=== PATIENT | female | born 1955 | race Caucasian/White ===

== ENCOUNTER 2016-07-02 17:13 | Emergency (ER) | payer OTHER ==
[~2016-07-02] VITALS: Wt 69.0 kg
[~2016-07-02 17:13] MED LIST: SITA1TAB PO
[2016-07-02] MEDS ORDERED: morphine 4 MG/ML VIAL IV STA (17:40)
[2016-07-02] MEDS ORDERED: ONDANSETRON 4 MG INJ IV STA (17:40)
[2016-07-02] MEDS ORDERED: SOD CHLORIDE 0.9% 1,000 ML IV STA (17:40)
[2016-07-02 17:59] LABS: ALBUMIN 4.5 g/dl (3.3-4.9); POTASSIUM 3.8 mmol/L (3.5-5.1)
[2016-07-02 18:00] LABS: ADD UMIC YES; HEMATOCRIT 41.8 % (37.0-47.0); HEMOGLOBIN 14.4 g/dl (12.0-16.0); MEAN CORPUSCULAR HEMOGLOBIN 30.7 pg (29.0-33.0); MEAN CORPUSCULAR HGB CONC 34.5 g/dl (32.0-37.0); MEAN PLATELET VOLUME 14.3 fl (7.4-10.4); PLATELET COUNT 90 10^3/UL (140-440); RED BLOOD COUNT 4.69 10^6/ul (4.20-5.40); RED CELL DISTRIBUTION WIDTH 13.1 % (11.5-14.5); UNCORRECTED WBC 9.6 10^3/ul (4.8-10.8); URINE BILIRUBIN (Dip) NEGATIVE (NEGATIVE); URINE BLOOD (Dip) NEGATIVE (NEGATIVE); URINE COLOR LT. YELLOW (YELLOW); URINE GLUCOSE (Dip) NEGATIVE (NEGATIVE); URINE KETONES (Dip) NEGATIVE (NEGATIVE); URINE LEUKOCYTE ESTERASE (Dip) TRACE (NEGATIVE); URINE NITRITE (Dip) NEGATIVE (NEGATIVE); URINE TOTAL PROTEIN (Dip) NEGATIVE (NEGATIVE); URINE UROBILINOGEN (Dip) 0.2 E.U./dL (0.1-1.0); WHITE BLOOD COUNT 9.6 10^3/ul (4.8-10.8)
[2016-07-02 18:01] LABS: BILIRUBIN,INDIRECT 0.3 mg/dl (0-1.1); BILIRUBIN,TOTAL 0.3 mg/dl (0.2-1.3); CREATININE 0.61 mg/dl (0.44-1.00)
[2016-07-02 18:02] LABS: ALBUMIN/GLOBULIN RATIO 1.12; CALCIUM 9.5 mg/dl (8.4-10.2); TOTAL PROTEIN 8.5 g/dl (6.1-8.1)
[2016-07-02 18:04] LABS: CONDITION 1; LH ANALYZER COMMENTS 1; SUSPECT 1
[2016-07-02 18:10] LABS: SQUAMOUS EPITHELIAL CELL,UR FEW
[2016-07-02 18:11] LABS: URINE RBCS 0-2 /HPF (0)
--- NOTE | 2016-07-02 18:26 | RADRPT ---
PROCEDURE: CT abdomen and pelvis with. contrast. CLINICAL INDICATION: Abdominal Pain TECHNIQUE: Noncontrast CT examination of the abdomen and pelvis, with axial, sagittal and coronal reformatted images. CTDI: 6.49 mGy and DLP: 349.25 mGy-cm. COMPARISON: None. FINDINGS: CT abdomen: The lung bases are clear. The heart size is normal, without pericardial thickening or effusion. 14 mm low attenuation lesion in the left hepatic lobe statistically represents a cyst. The liver is otherwise unremarkable. The spleen is normal in size and homogeneous in density. The stomach is pa rtially collapsed, but is grossly unremarkable. The pancreas as visualized is normal. The gallblad jack and biliary tree are unremarkable and there is no evidence for biliary dilatation. The adrenal glands are symmetric and normal. The kidneys are symmetrically unremarkable as well. No renal calcu josé miguel or obstructive uropathy or mass lesion is seen. The aorta is of normal caliber. There is no retroperitoneal lymphadenopathy. The evens hepatis reg ion is clear. The bowel and mesentery, as visualized, are equally unremarkable. CT pelvis: Solid stool in the distal ileum compatible with small bowel motility disorder. The pelvic organs ar e normal. The pelvic sidewalls and inguinal regions are clear. The sigmoid colon as a few divertic brenna; and rectum is unremarkable. No mass, lymphadenopathy, or free fluid is seen. No acute inflamm ation is seen. The appendix is unremarkable. The surrounding osseous structures are remarkable for mild degenerative spondylosis of the spine. N o osteolytic or osteoblastic lesion is detected. IMPRESSION: 1. Small bowel motility disorder. 2. Otherwise, unremarkable CT scan of the abdomen and pelvis. RPTAT: [facility] Physician Jennie Date Time Electronically viewed and signed by Physician Jennie on 07/02/2016 18:26 RS/
[2016-07-02 18:38] LABS: LYMPHOCYTES # 1.6 10^3/ul (0.8-2.9); MONOCYTE # 0.4 10^3/ul (0.3-0.9); NEUTROPHIL # 7.4 10^3/ul (1.6-7.5); PLATELET ESTIMATE PLT APPEAR DECREASED
[2016-07-02] MEDS ORDERED: DICLOFENAC SODIUM 37.5 MG/ML VIAL IV STA (19:25)
[2016-07-02 19:56] VITALS: BP 147/74; PULSE 69; RESP 16; TEMP 98
[2016-07-02] MEDS ORDERED: ONDA4TAB11 PO (20:01)
[2016-07-02] MEDS ORDERED: MAGN296S40 PO (20:01)
[2016-07-02] MEDS ORDERED: NAPR-688 PO (20:01)
[2016-07-02] MEDS ORDERED: POLY17PO6 PO (20:01)
--- NOTE | 2016-07-02 20:31 | ERD ---
ER Documentation Chief Complaint Date/Time DATE: 07/02/16 TIME: 20:13 Chief Complaint ABD PAIN X 1 DAY HPI This 61-year-old female presents for left lower quadrant abdominal pain for 1 day. She denies fever and chills. Denies any nausea and vomiting. Denies constipation and diarrhea. States that aside from the pain in her left lower quadrant she has no other symptoms. She is diabetic and her sugars are controlled. ROS All systems reviewed and are negative except as per history of present illness. Medications Home Meds Active Scripts Magnesium Citrate* (Magnesium Citrate*) 296 Ml Solution, 296 ML PO ONCE, #1 BOTTLE Prov:RANGEL HSU DO 07/02/16 Polyethylene Glycol* (Miralax*) 17 Gm Powd.pack, 17 GM PO DAILY, #7 Prov:RANGEL HSU DO 07/02/16 Ondansetron (Zofran Odt) 4 Mg Tab.rapdis, 4 MG PO Q6 for NAUSEA, #10 Prov:RANGEL HSU DO 07/02/16 Naproxen* (Naproxen*) 500 Mg Tablet, 500 MG PO BID Y for PAIN, #20 TAB Prov:RANGEL HSU DO 07/02/16 Reported Medications Sitagliptin Phos/Metformin HCl (Janumet 50-500 mg Tablet) 1 Each Tablet, 1 EACH PO DAILY, TAB 05/10/16 Allergies Allergies: Coded Allergies: No Known Drug Allergies (Verified Allergy, Mild, 07/02/16) PMhx/Soc History of Surgery: No Anesthesia Reaction: No Hx Neurological Disorder: No Hx Respiratory Disorders: No Hx Cardiac Disorders: No Hx Psychiatric Problems: No Hx Miscellaneous Medical Probl: No Hx Alcohol Use: No Hx Substance Use: No Hx Tobacco Use: No Smoking Status: Never smoker Physical Exam Vitals Vital Signs Date Time Temp Pulse Resp B/P Pulse Ox O2 Delivery O2 Flow Rate FiO2 07/02/16 19:56 98.0 69 16 147/74 99 Room Air 07/02/16 17:15 98.0 70 16 171/68 99 Physical Exam Const: [] No distress Head: Atraumatic Eyes: Normal Conjunctiva ENT: Normal External Ears, Nose and Mouth. Neck: Full range of motion..~ No meningismus. Resp: Clear to auscultation bilaterally Cardio: Regular rate and rhythm, no murmurs Abd: Soft, mild left lower quadrant and midabdominal tenderness without guarding or rebound, non distended. Normal bowel sounds Skin: No petechiae or rashes Back: No midline or flank tenderness Ext: No cyanosis, or edema Neur: Awake and alert and oriented 3, no focal deficits Psych: Normal Mood and Affect Result Diagram: 07/02/16 1730 07/02/16 1730 Results 24 hrs Laboratory Tests Test 07/02/16 17:30 Alanine Aminotransferase (ALT/SGPT) 29IU/L Albumin 4.5g/dl Albumin/Globulin Ratio 1.12 Alkaline Phosphatase 114IU/L Anion Gap 18 Aspartate Amino Transf (AST/SGOT) 27IU/L Band Neutrophils % 2.0% Blood Morphology Comment Blood Urea Nitrogen 15mg/dl Calcium Level 9.5mg/dl Carbon Dioxide Level 26mmol/L Chloride Level 105mmol/L Creatinine 0.61mg/dl Direct Bilirubin 0.00mg/dl Globulin 4.00g/dl Glucose Level 101mg/dl Hematocrit 41.8% Hemoglobin 14.4g/dl Indirect Bilirubin 0.3mg/dl Large Platelets FEW Lipase 102U/L Lymphocytes # 1.610^3/ul Lymphocytes % 17.0% Mean Corpuscular Hemoglobin 30.7pg Mean Corpuscular Hemoglobin Concent 34.5g/dl Mean Corpuscular Volume 89.0fl Mean Platelet Volume 14.3fl Monocytes # 0.410^3/ul Monocytes % 4.0% Neutrophils # 7.410^3/ul Neutrophils % 77.0% Platelet Count 9010^3/UL Platelet Estimate PLT APPEAR DECREASED Potassium Level 3.8mmol/L Red Blood Count 4.6910^6/ul Red Cell Distribution Width 13.1% Sodium Level 145mmol/L Total Bilirubin 0.3mg/dl Total Protein 8.5g/dl Urine Bilirubin NEGATIVE Urine Clarity CLEAR Urine Color LT. YELLOW Urine Glucose NEGATIVE% Urine Hemoglobin NEGATIVE Urine Ketones NEGATIVE Urine Leukocyte Esterase TRACE Urine Microscopic RBC 0-2/HPF Urine Microscopic WBC 2-5/HPF Urine Nitrite NEGATIVE Urine Specific [place] <=1.005 Urine Squamous Epithelial Cells FEW Urine Total Protein NEGATIVE Urine Urobilinogen 0.2 E.U./dL Urine pH 5.5 White Blood Count 9.610^3/ul Current Medications Medications (Trade) Dose Ordered Sig/Ana Route PRN Reason Start Time Stop Time Status Last Admin Dose Admin Sodium Chloride (NS) 1,000 ml @ 1,000 mls/hr Q1H STAT IV 07/02/16 17:40 07/02/16 18:39 DC 07/02/16 17:47 Morphine Sulfate (morphine) 4 mg ONCE STAT IV 07/02/16 17:40 07/02/16 17:41 DC 07/02/16 17:48 Ondansetron HCl (Zofran Inj) 4 mg ONCE STAT IV 07/02/16 17:40 07/02/16 17:41 DC 07/02/16 17:47 Diclofenac Sodium (Dyloject) 37.5 mg ONCE STAT IV 07/02/16 19:25 07/02/16 19:26 DC 07/02/16 19:36 Procedures/MDM 61-year-old female with abdominal pain secondary to motility disorder causing pain. Patient was hydrated with normal saline and given morphine and Zofran initially. She stated this took away all of her pain. After the CT read returned I offered admission but she stated that she definitely would rather try laxatives prior to being admitted. She has no nausea but amended discharge her with some Zofran in case she develops it that she can hydrate herself well, I am also discharging her with MiraLAX, magnesium citrate, naproxen. Told her to return emergency room she has at the return of pain or any other concerning symptoms. CT abdomen pelvis interpretation: Motility disorder involving stool in the terminal ileum Departure Diagnosis: Primary Impression: Abdominal pain Additional Impression: Motility disorder of intestine Condition: Stable Patient Instructions: Abdominal Pain, Gastroparesis Additional Instructions: Call your primary care doctor TOMORROW for an appointment during the next 2-3 days.See the doctor sooner or return here if your condition worsens before your appointment time. RANGEL HSU DO Jul 02, 2016 20:24
== END 2016-07-02 20:14 | disposition home or self-care (01) ==
LOC: E/R 17:13
DX: R10.32 Left lower quadrant pain (principal); K30 Functional dyspepsia; E11.9 Type 2 diabetes mellitus without complications; Z79.84 Long term (current) use of oral hypoglycemic drugs
CPT/HCPCS: 36415; 74176; 80053; 81001; 83690; 85025; 96374; 96375; J2270; J2405; J7030; Z7502; Z7610; 81003

== ENCOUNTER 2018-10-04 21:55 | Emergency (ER) | payer OTHER ==
[~2018-10-04] VITALS: Ht 154.9 cm; Wt 58.2 kg
[~2018-10-04 21:55] MED LIST changes: +MAGN296S40 PO; +NAPR-688 PO; +ONDA4TAB11 PO; +POLY17PO6 PO
[2018-10-04 21:58] VITALS: BP 168/79; PULSE 83; RESP 16; Ht 154.9 cm; Wt 58.2 kg
--- NOTE | 2018-10-04 23:53 | ERD ---
ER Documentation Chief Complaint Chief Complaint Rash on L leg since tonight HPI 63-year-old female, previously healthy, presents to the emergency department, complaining of acute onset of erythematous, pruritic rash on the left lower extremity that started tonight after eating salmon and drinking a beer. The patient denies history of allergies. She denies lip or tongue swelling. No shortness of breath. ROS All systems reviewed and are negative except as per history of present illness. Medications Home Meds Active Scripts Diphenhydramine Hcl* (Benadryl*) 25 Mg Cap, 25 MG PO Q6 PRN for ITCHING/RASH, #12 TAB Prov:CANDICE GAYTAN MD 10/05/18 Prednisone* (Prednisone*) 20 Mg Tab, 40 MG PO DAILY for 4 Days, TAB Prov:CANDICE GAYTAN MD 10/05/18 Magnesium Citrate* (Magnesium Citrate*) 296 Ml Solution, 296 ML PO ONCE, #1 BOTTLE Prov:RANGEL HSU DO 07/02/16 Polyethylene Glycol* (Miralax*) 17 Gm Powd.pack, 17 GM PO DAILY, #7 Prov:RANGEL HSU DO 07/02/16 Ondansetron (Zofran Odt) 4 Mg Tab.rapdis, 4 MG PO Q6 for NAUSEA, #10 Prov:RANGEL HSU DO 07/02/16 Naproxen* (Naproxen*) 500 Mg Tablet, 500 MG PO BID PRN for PAIN, #20 TAB Prov:RANGEL HSU DO 07/02/16 Reported Medications Sitagliptin Phos/Metformin HCl (Janumet 50-500 mg Tablet) 1 Each Tablet, 1 EACH PO DAILY, TAB 05/10/16 Allergies Allergies: Coded Allergies: No Known Drug Allergies (Verified Allergy, Mild, 07/02/16) PMhx/Soc History of Surgery: No Anesthesia Reaction: No Hx Neurological Disorder: No Hx Respiratory Disorders: No Hx Cardiac Disorders: No Hx Psychiatric Problems: No Hx Miscellaneous Medical Probl: No Hx Alcohol Use: No Hx Substance Use: No Hx Tobacco Use: No FmHx Family History: diabetes; No coronary disease Physical Exam Vitals Vital Signs Date Temp Pulse Resp B/P (MAP) Pulse Ox O2 O2 Flow FiO2 Time Delivery Rate 10/04/18 98.3 83 16 168/79 100 21:58 (108) Physical Exam Const: No acute distress Head: Atraumatic Eyes: Normal Conjunctiva ENT: Normal External Ears, Nose and Mouth. Neck: Full range of motion. No meningismus. Resp: Clear to auscultation bilaterally Cardio: Regular rate and rhythm, no murmurs Abd: Soft, non tender, non distended. Normal bowel sounds Skin: No petechiae or rashes Back: No midline or flank tenderness Ext: No cyanosis, or edema Neur: Awake and alert Psych: Normal Mood and Affect Results 24 hrs Current Medications Medications Dose Sig/Ana Start Time Status Last (Trade) Ordered Route PRN Stop Time Admin Dose Reason Admin Prednisone 60 mg ONCE ONCE 10/05/18 DC (Prednisone) PO 00:00 10/05/18 00:24 Famotidine 20 mg ONCE ONCE 10/05/18 DC (Pepcid) PO 00:00 10/05/18 00:24 Procedures/MDM Differential diagnosis include but not limited to: Viral exanthema, acute allergic reaction, autoimmune dermatitis, medication side effect, low suspicion for angioedema, anaphylactic shock, Dover-Dhruv syndrome. Physical examination and clinical presentation consistent most likely with acute allergic urticaria During the ED course the patient remained hemodynamically stable stable, no new complaints. Results and clinical impression discussed with the parent who agrees with management. The patient is stable to be treated outpatient and will be discharged home with a Rx for steroids and antihistaminics p.o. some side effects of prescribed medications (headache, rash, nausea, vomiting, diarrhea, d rowsiness, interactions with other medications) were reviewed. The patient was instructed to follow up with the primary care provider in the next 48h. If symptoms persist, worsen or new symptoms develop, then patient should return to the ED immediately. Instructions explained and given directly by me with acknowledgment and demonstrated understanding. Disclaimer: Inadvertent spelling and grammatical errors are likely due to EHR/dictation software use and do not reflect on the overall quality of patient care. Also, please note that the electronic time recorded on this note does not necessarily reflect the actual time of the patient encounter. Departure Diagnosis: Primary Impression: Allergic urticaria Condition: Stable Patient Instructions: Hives Additional Instructions: Muchas to por [facility] para lee servicio. Esperamos que en lee visita a la bola de emergencia lee problema medico haya sido solucionado y que se sienta mucho mejor. Para estar seguros que lee mejoria sigue en proceso, le pedimos el favor de hacer caroline christopher de seguimiento medico con lee doctor primario en los proximos 2-4 mcclain. Lleve con usted estos documentos y las medicinas recetadas. Si ritika sintomas empeoran, NO SE ESPERE, por favor regrese a bola de emergencia INMEDIATAMENTE. En neda que usted no tenga un mdico de atencin primaria: Llame al mdico o clnica comunitaria de referencia que aparece abajo isable las horas de consultorio para hacer caroline christopher para que le vean. CLINICAS: [place] [id number] [phone] [facility] [phone] [facility] [phone] [facility] [phone] [facility]. [place] [address] [phone] [facility]. [phone] CANDICE OSBORN MD Oct 04, 2018 23:53
[2018-10-05] MEDS ORDERED: predniSONE 20 MG TAB PO ONE
[2018-10-05] MEDS ORDERED: FAMOTIDINE 20 MG TAB PO ONE
[2018-10-05] MEDS ORDERED: BEN25 PO (00:01)
[2018-10-05] MEDS ORDERED: PRED20TA PO (00:01)
== END 2018-10-05 01:51 | disposition home or self-care (01) ==
LOC: FTE 21:55
DX: L50.0 Allergic urticaria (principal); Z79.84 Long term (current) use of oral hypoglycemic drugs
CPT/HCPCS: 99283